=== PATIENT | female | born 1965 | race Caucasian/White ===

== ENCOUNTER 2017-06-14 22:01 | Emergency (ER) | payer MEDICAID ==
[~2017-06-14] VITALS: Ht 160 cm; Wt 92.0 kg
[~2017-06-14 22:01] MED LIST: FERR-63 PO
[2017-06-14] MEDS ORDERED: LIDOCAINE HCL 1%/EPI 1:200,000 30 ML VIAL MC ONE (23:15)
[2017-06-15 01:17] VITALS: BP 151/88
== END 2017-06-15 01:22 | disposition home or self-care (01) ==
LOC: ER 22:01
DX: S01.401A Unspecified open wound of right cheek and temporomandibular area, initial encounter (principal); R60.0 Localized edema; X58.XXXA Exposure to other specified factors, initial encounter; Y93.89 Activity, other specified; Y99.8 Other external cause status; Y92.89 Other specified places as the place of occurrence of the external cause
CPT/HCPCS: 12011; 93971; 99284; Z7610